=== PATIENT | female | born 1970 | race African-American/Black ===

== ENCOUNTER 2019-09-30 09:49 | Day surgery (SDC) | payer BC ==
--- NOTE | 2019-09-18 09:31 | HP ---
DATE OF ADMISSION: 09/30/2019 DATE OF DICTATION: 09/08/2019 BRIEF HISTORY: This is a 49-year-old female who has a soft tissue mass on the posterior aspect of her right leg. She wants to have this removed. It has gotten significantly larger and it bothers her. PAST MEDICAL HISTORY: No coronary artery disease, hypertension or diabetes. PAST SURGICAL HISTORY: x2. ALLERGIES: None. MEDICATIONS: None. SOCIAL HISTORY: The patient does not smoke. No history of drug use. She drinks socially. PHYSICAL EXAMINATION: Extremities: Posteromedial right leg: There is a growth consistent with a protruding lipoma/polyp. The mass is approximately 5 cm in length and it is raised approximately 3 cm. It is also about 3 cm wide. The mass is soft. No overlying skin changes and the mass is nontender. IMPRESSION/PLAN: Soft tissue mass right leg, consistent with lipoma. We will plan for excision in the operating room, given its location. The indications, alternatives and complications of the procedure were discussed. Questions were answered. We will plan on obtaining written consent the day of surgery. Peace CAMPBELL [id number] cc: Lory Mayfield MD
[2019-09-29 10:10] VITALS: BMI 40.8
[2019-09-30] MEDS ORDERED: ceFAZolin SODIUM 1 GM VIAL ONE ×2 (10:43→11:59)
[2019-09-30] MEDS ORDERED: LIDOCAINE HCL 1%, 10 MG/ML (20ML VIAL) ONE (11:32)
[2019-09-30] MEDS ORDERED: MIDAZOLAM HCL 2 MG/2 ML SINGLE DOSE VIAL ONE (11:33)
[2019-09-30] MEDS ORDERED: PROPOFOL 20 ML ONE (11:33)
[2019-09-30] MEDS ORDERED: DEXAMETHASONE SOD PHOSPHATE 4 MG/1 ML VIAL ONE (11:59)
[2019-09-30] MEDS ORDERED: ceFAZolin 2 GRAM PREMIX BAG IVPB ONE (12:00)
[2019-09-30] MEDS ORDERED: LIDOCAINE HCL 1%, 10 MG/ML (20ML VIAL) NR ONE ×2 (12:06)
[2019-09-30] MEDS ORDERED: KETOROLAC TROMETHAMINE 30 MG/1 ML VIAL ONE (12:26)
[2019-09-30 12:55] VITALS: TEMP 97.4
[2019-09-30 13:48] VITALS: BP 135/72; PULSE 67
[2019-09-30] MEDS ORDERED: ONDANSETRON 4 MG/2 ML VIAL IVPUSH PRN (14:18)
[2019-09-30] MEDS ORDERED: oxyCODONE HCL 5 MG TABLET PO PRN (14:18)
[2019-09-30] MEDS ORDERED: LACTATED RINGERS SOLUTION 1,000 ML IV SCH (14:30)
--- NOTE | 2019-10-01 10:31 | OP ---
DATE OF OPERATION: 09/30/2019 PREOPERATIVE DIAGNOSIS: Soft tissue mass, right buttock/thigh. POSTOPERATIVE DIAGNOSIS: Soft tissue mass, right buttock/thigh, 8-cm intermediate wound closure. PROCEDURE: Excision of soft tissue mass, right buttock/thigh. SURGEON: Rosalio Hadley MD PROGRAM SUPPORT SPECIALIST: None. ANESTHESIA: Sadie Dickens MD (MAC/1% lidocaine without epinephrine approximately 16). SPECIMENS: Soft tissue mass (lipoma). INDICATION FOR PROCEDURE: This is a 49-year-old female who has a soft tissue mass on the back of her right leg/buttock region. It is causing her discomfort. She wishes to have this removed. DESCRIPTION OF PROCEDURE: Patient identified and appropriately positioned on the operating room table. After placement of IV sedation, the area prepped and draped in the usual sterile fashion with ChloraPrep. Time-out called; 1% lidocaine without epinephrine was used for anesthesia approximately 16 mL. The soft tissue mass was incised in an elliptical fashion at its base. The line of excision was placed on the lines of Bonnie. Next, the mass was sharply excised en bloc bluntly and intact. Hemostasis achieved with cautery as needed. The dermis was reapproximate with interrupted, inverted 3-0 Vicryl suture and the skin closed with vertical mattress 3-0 Prolene sutures followed by Dermabond. At the conclusion of this case, sponge counts were correct. ATTESTATION: Brief operative note handwritten on the preprinted form. [facility] queried prior to giving narcotics. Peace CAMPBELL [id number] cc: Dr. Lory Sanford [facility]
--- NOTE | 2019-10-01 17:30 | PATH ---
Surgical Pathology Report Patient Name: MICHAELA COOK [facility]. Rec. 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 Electronically Signed Ciarra Leon M.D. Gross Description Received in formalin labeled "right posterior soft tissue mass buttocks/thigh," is a 5.5 x 4.5 cm brown, ovoid, unoriented portion of skin excised to depth of 3.5 cm. The epidermal surface displays a 3.5 cm in greatest dimension defect. Sectioning reveals homogeneous yellow, lobulated adipose tissue. Multi Skilled Operator sections are submitted in 3 cassettes. DL/09/30/2019 saudi/09/30/2019
== END 2019-09-30 13:45 | disposition home or self-care (01) ==
LOC: JASU-SURG 09:49
PROVIDERS: ATTEND Surgery
PROC: 0JB70ZZ Excision of Back Subcutaneous Tissue and Fascia, Open Approach (ICD-10-PCS; principal; 2019-09-30 11:30)
DX: D21.6 Benign neoplasm of connective and other soft tissue of trunk, unspecified (principal)
CPT/HCPCS: 84703